=== PATIENT | female | born 1965 | race Caucasian/White ===

== ENCOUNTER 2017-01-27 12:31 | Emergency (ER) | payer BC ==
--- NOTE | ~2017-01-27 | CR107 ---
[facility] A Service of [facility] & [facility] RADIOLOGY TEXT RESULTS PATIENT: BRIDGET PALMA LOCATION: [place] : 61 UNIT #: [id number] AGE: [address]: Princess Miller APRN SEX: F ORDER DR: [id number] [facility] [address] [place], [place] [address] [id number] E MR#: [id number] Acc #: [id number] NAME: BRIDGET PALMA : 1965 SEX: F STUDY DATE/TIME: 01/27/2017 13:33 UNIT: [facility] ROOM: STUDY DESCRIPTION: CR Femur 2 Views Rt Attending Physician: Princess Miller A.P.R.N. Ordering Physician: Ed Jesus Gorman M.D. Primary Care Physician: Demar Quezada M.D. MEDICAL IMAGING REPORT This report is preliminary unless electronic signature is present EXAM Right femur, 4 views, 01/27/2017 HISTORY Right femur pain for 2 days and right hip pain. No known trauma. FINDINGS AP and lateral views of the femur show no evidence of fracture, bone destruction, or periosteal elevation. Adjacent soft tissue structures are normal. IMPRESSION Normal femur. Dictated by... Ezio Diaz M.D. THIS IS AN ELECTRONICALLY VERIFIED REPORT Ezio Diaz M.D. at 01/28/2017 8:08 AM LOKESH/alicia TD: 01/27/2017 14:14 JOB #: [id number] MEDICAL IMAGING REPORT Page 1 of 1 COPY
--- NOTE | ~2017-01-27 | CR151 ---
[facility] A Service of [facility] & [facility] RADIOLOGY TEXT RESULTS PATIENT: BRIDGET PALMA LOCATION: [facility] : 61 UNIT #: [id number] AGE: [address]: Princess Miller APRN SEX: F ORDER DR: [id number] [facility] [address] [place], [place] [address] [id number] E MR#: [id number] Acc #: [id number] NAME: BRIDGET PALMA : 1965 SEX: F STUDY DATE/TIME: 01/27/2017 13:30 UNIT: [facility] ROOM: STUDY DESCRIPTION: CR Hip Min 2 Views Rt Attending Physician: Princess Miller A.P.R.N. Ordering Physician: Ed Jesus Gorman M.D. Primary Care Physician: Demar Quezada M.D. MEDICAL IMAGING REPORT This report is preliminary unless electronic signature is present EXAM Right hip 3 views 01/27/2017 HISTORY Right hip pain for 2 days with no known injury. FINDINGS AP and oblique examination of the hip shows adequate mineralization of the bones and a normal anatomic relationship of the femoral head with the acetabulum. There are no hypertrophic changes, fractures, dislocation, or joint capsular distension. No radiopaque foreign body is present about the soft tissues of the hip. IMPRESSION Normal hip. Dictated by... Ezio Diaz M.D. THIS IS AN ELECTRONICALLY VERIFIED REPORT Ezio Diaz M.D. at 01/28/2017 8:08 AM KRT/alicia TD: 01/27/2017 14:31 JOB #: [id number] MEDICAL IMAGING REPORT Page 1 of 1 COPY
[~2017-01-27 12:31] MED LIST: ALBUTEROL17 GM INH; CARAFATE1 G PO; DICYCLOMINE HCL20 MG PO; KEFLEX500 MG PO; LORTAB 5/500 TA1 TA1 PO; MOTRIN600 MG PO; NEXIUM PO; ZITHROMAX PO
== END 2017-01-27 14:41 | disposition home or self-care (01) ==
LOC: CED 12:31 → CFTX 12:31
DX: M25.551 Pain in right hip (principal); M25.561 Pain in right knee; E11.9 Type 2 diabetes mellitus without complications; I10 Essential (primary) hypertension; E78.5 Hyperlipidemia, unspecified; F17.210 Nicotine dependence, cigarettes, uncomplicated; Z90.710 Acquired absence of both cervix and uterus; Z79.899 Other long term (current) drug therapy
CPT/HCPCS: 73502; 73552; 99283

== ENCOUNTER 2017-01-31 15:20 | Emergency (ER) | payer BC ==
--- NOTE | ~2017-01-31 | US85 ---
[facility] A Service [facility] RADIOLOGY TEXT RESULTS PATIENT: BRIDGET PALMA LOCATION: [place] : 61 UNIT #: [id number] AGE: [address]: Claire Archibald APRN SEX: F ORDER DR: [id number] [facility] [address] [place], [place] [address] [id number] E MR#: [id number] Acc #: [id number] NAME: BRIDGET PALMA : 1965 SEX: F STUDY DATE/TIME: 01/31/2017 17:45 UNIT: [facility] ROOM: STUDY DESCRIPTION: [facility] Attending Physician: Claire Archibald A.P.R.N. Ordering Physician: Ed Jesus Gorman M.D. Primary Care Physician: Demar Quezada M.D. MEDICAL IMAGING REPORT This report is preliminary unless electronic signature is present EXAM Right lower extremity duplex venous ultrasound HISTORY Right lower extremity pain for 2 days. TECHNIQUE Luna-scale, color Doppler and spectral Doppler waveform imaging of deep venous structures of the right lower extremity was performed using compression and augmentation. No available studies for comparison. FINDINGS All of the evaluated deep venous structures are patent and compressible. The flow is sluggish, but there is no evidence for any thrombus or non-compressibility. IMPRESSION Sluggish Doppler flow is noted; however, there is no evidence for deep venous thrombosis. All of the evaluated deep venous structures are patent and compressible. Dictated by... Trent Kent M.D. THIS IS AN ELECTRONICALLY VERIFIED REPORT Trent Kent M.D. at 02/01/2017 10:02 AM ARS/radha TD: 02/01/2017 03:50 JOB #: [id number] [facility] A [facility] RADIOLOGY TEXT RESULTS PATIENT: BRIDGET PALMA LOCATION: [place] : 61 UNIT #: [id number] AGE: [address]: Claire Archibald APRN SEX: F ORDER DR: MEDICAL IMAGING REPORT Page 1 of 1 COPY
[2017-01-31 17:39] LABS: BASOPHIL# 0.1 X10e3 (0-0.3); BASOPHIL% 0.8 % (0-2.5); EOSINOPHIL# 0.2 X10e3 (0-0.7); EOSINOPHIL% 1.4 % (0.0-7.0); HEMATOCRIT 49.2 % (35.0-45.0); HEMOGLOBIN 16.5 gm/dL (12.0-16.0); LYMPHOCYTE# 4.6 X10e3 (1.0-3.5); LYMPHOCYTE% 37.2 % (17.0-45.0); MEAN CELL VOLUME 90.3 FL (83-96); MEAN CORPUSCULAR HEMOGLOBIN 30.2 PG (28-34); MEAN CORPUSCULAR HGB CONC 33.4 g/dL (30-36); MONOCYTE# 0.7 X10e3 (0-1.0); MONOCYTE% 5.4 % (3.0-12.0); NEUTROPHIL# 6.8 X10e3 (1.5-7.1); NEUTROPHIL% 55.2 % (40-75); PLATELET COUNT 268 X10e3 (140-420); RED BLOOD COUNT 5.45 X10e (3.90-5.30); RED CELL DISTRIBUTION WIDTH 12.8 % (11.0-15.5); WHITE BLOOD COUNT 12.4 X10e3 (4.0-10.5)
[2017-01-31 17:41] LABS: DIFF IND NO
[2017-01-31 17:53] LABS: PARTIAL THROMBOPLASTIN TIME 26.1 SECONDS (23.5-31.3); PROTHROMBIN TIME (PATIENT) 10.7 SECONDS (10.0-11.7)
[2017-01-31 18:03] LABS: BUN/CREATININE RATIO 28.57; CREATININE SERUM 0.7 mg/dL (0.6-1.4); GLOM FILT RATE Estimated 98.9 mL/min (>60); POTASSIUM 3.7 mmol/L (3.5-5.1)
== END 2017-01-31 19:25 | disposition home or self-care (01) ==
LOC: CED 15:20 → CFTX 15:20
PROVIDERS: Nurse Practitioner
DX: M79.651 Pain in right thigh (principal); E11.9 Type 2 diabetes mellitus without complications; F17.210 Nicotine dependence, cigarettes, uncomplicated
CPT/HCPCS: 36415; 80048; 85025; 85610; 85730; 93971; 96372; 99284; J1170